=== PATIENT | female | born 1980 | race Caucasian/White ===

== ENCOUNTER 2016-11-22 14:50 | Inpatient (IN) | payer OTHER ==
[~2016-11-22] VITALS: Ht 162.6 cm; Wt 97.6 kg
[2016-11-22] VITALS (7 sets, daily range): BP systolic 0–115; BP diastolic 0–89
[~2016-11-22 14:50] MED LIST: BACLOFEN10 MG PO; CLONIDINE HCL0.1 MG PO; GABAPENTIN100 MG PO; GABAPENTIN300 MG PO; NOHOMEMEDS; SLEEP AID25 M1 PO; TRAZODONE HCL50 MG PO; ULTRAM50 MG PO; ZOFRAN4 MG PO
[2016-11-22 15:29] LABS: ADD MIUA? NO; BILIRUBIN NEGATIVE; BLOOD NEGATIVE; COLOR YELLOW ((YELLOW)); GLUCOSE (STRIP) NEGATIVE; KETONES NEGATIVE; LEUKOCYTES NEGATIVE; NITRITE NEGATIVE; PROTEIN (STRIP) NEGATIVE; SPECIFIC GRAVITY 1.018 (1.000-1.030); UCUL ADDED? NO; UROBILINOGEN 0.2 MG/DL (0.2-1.0)
[2016-11-22 15:39] LABS: ADD MEDTOX COMMENT Y; AMPHETAMINE NEGATIVE (500 ng/mL); BARBITURATES NEGATIVE (200 ng/mL); BENZODIAZEPINES PRESUMPTIVE POSITIVE (150 ng/mL); COCAINE NEGATIVE (150 ng/mL); INTERNAL CONTROLS VALID? YES; METHADONE PRESUMPTIVE POSITIVE (200 ng/mL); METHAMPHETAMINE NEGATIVE (500 ng/mL); OPIATES (MORPHINE) NEGATIVE (100 ng/mL); OXYCODONE PRESUMPTIVE POSITIVE (100 ng/mL); PHENCYCLIDINE NEGATIVE (25 ng/mL); PROPOXYPHENE NEGATIVE (300 ng/mL); THC CANNABINOIDS NEGATIVE (50 ng/mL); TRICYCLIC ANTIDEPRESSANTS PRESUMPTIVE POSITIVE (300 ng/mL)
[2016-11-22 16:03] LABS: BASE EXCESS -3.9 mEq/L (-3 to +3); BICARBONATE 24.1 mEq/L (22-26); CARBOXY HGB 3.8 % (0-5); COMMENTS - BLOOD GASES C+; DEVICE VENT; FI02 100 %; MECHANICAL RATE 16 resp/min; METHEMOGLOBIN 1.1 % (0-1.5); MODE A/C; PCO2 55 mm Hg (35-45); PO2 183 mm Hg (80-100); SITE LB; pH 7.25 (7.35-7.45)
[2016-11-22 16:04] LABS: PEEP 5 CM/H20; TIDAL VOLUME 400 ML; TOTAL RESP RATE 16 resp/min
[2016-11-22 16:09] LABS: BENZODIAZEPINES, URINE SCREEN POSITIVE (200 ng/mL)
[2016-11-22 16:09] LABS: HEMATOCRIT 46.8 % (36.0-46.0); MCH 28.3 PG (29.0-34.0); MCHC 31.6 G/DL (30.0-36.0); MCV 89.5 FL (83-99); MEAN PLAT.VOLUME 10.2 uM^3 (9.5-12.4); RBC DIS.WIDTH-CV 13.7 % (11.8-14.6); RBC DIS.WIDTH-SD 44.9 % (39-53); RED BLOOD COUNT 5.23 M/uL (3.80-5.20); WHITE BLOOD COUNT 24.7 K/uL (4.1-10.2)
[2016-11-22 16:42] LABS: CHLORIDE 108 mEq/L (99-109); POTASSIUM 5.6 mEq/L (3.7-5.4); SODIUM 140 mEq/L (136-147)
[2016-11-22 16:45] LABS: GLUCOSE 141 mg/dL (70-99)
[2016-11-22 16:46] LABS: ANION GAP 12 MEQ/L (2-14); TOTAL BILIRUBIN 0.6 mg/dL (0.0-1.0)
[2016-11-22 16:47] LABS: SERUM ETHYL ALCOHOL < 10 mg/dL
[2016-11-22 16:48] LABS: GFR ESTIMATE (CALCULATED) > 59 mL/min/
[2016-11-22 16:49] LABS: ALKALINE PHOSPHATASE 76 IU/L (3-129)
[2016-11-22 16:50] LABS: UREA NITROGEN (BUN) 17 mg/dL (9-23)
[2016-11-22 16:52] LABS: SALICYLATE < 5.0 MG/DL (15-30)
[2016-11-22 17:03] LABS: ABS NEUTROPHIL COUNT 22.1; ANISOCYTOSIS 1+; ATYPICAL LYMPHOCYTE 0.9 %; BASOPHILS 0.9 %; EOSINOPHIL ABS CT 0; HEMATOLOGY COMMENT 1 SN; INSTRUMENT ABS NEUTROPHIL CT 22.1 K/uL; LYMPHOCYTES 2.6 % (15.0-45.0); PLATELET CLUMPS PRESENT - PLATELET COUNT APPEARS ADQ.; POLYCHROMASIA 1+; SEG.NEUTROPHILS 89.5 % (46.0-76.0)
[2016-11-22 18:48] LABS: QUANTITATIVE HCG < 4.0 MIU/ML
[2016-11-22 20:16] LABS: CREATINE KINASE 111 IU/L (1-294); TOTAL CK 111 IU/L (1-294)
[2016-11-22 20:22] LABS: CK-MB 2.7 ng/mL (0.0-4.9)
[2016-11-22 21:22] LABS: METH RESISTANT S AUREUS PCR NEGATIVE (NEGATIVE)
[2016-11-22 21:46] LABS: PROBE CHECK PASS; SPECIMEN PROCESSING CONTROL PASS
[2016-11-23] VITALS (23 sets, daily range): BP systolic 82–144; BP diastolic 56–98
[2016-11-23 05:44] LABS: HEMATOCRIT 41.5 % (36.0-46.0); MCHC 31.3 G/DL (30.0-36.0); MCV 89.4 FL (83-99); MEAN PLAT.VOLUME 10.8 uM^3 (9.5-12.4); PLATELET COUNT 251 K/uL (156-360); RBC DIS.WIDTH-CV 13.8 % (11.8-14.6); RBC DIS.WIDTH-SD 45.1 % (39-53); RED BLOOD COUNT 4.64 M/uL (3.80-5.20); WHITE BLOOD COUNT 22.8 K/uL (4.1-10.2)
[2016-11-23 05:58] LABS: BASE EXCESS -0.2 mEq/L (-3 to +3); BICARBONATE 24.8 mEq/L (22-26); CARBOXY HGB 1.9 % (0-5); COMMENTS - BLOOD GASES A+C+; DEVICE VENT; FI02 60 %; MECHANICAL RATE 22 resp/min; METHEMOGLOBIN 1.5 % (0-1.5); MODE A/C; PCO2 41 mm Hg (35-45); PO2 58 mm Hg (80-100); SITE RR; TIDAL VOLUME 500 ML; TOTAL RESP RATE 22 resp/min; pH 7.39 (7.35-7.45)
[2016-11-23 05:59] LABS: PEEP 5 CM/H20
[2016-11-23 06:21] LABS: ANION GAP 5 MEQ/L (2-14); CHLORIDE 112 MEQ/L (99-109); GLUCOSE 112 mg/dL (70-99); SAMPLE HEMOLYSIS CHECK 0; SAMPLE ICTERIC CHECK 0; SAMPLE LIPEMIA CHECK 0; SODIUM 139 MEQ/L (136-147); UREA NITROGEN (BUN) 12 mg/dL (9-23)
[2016-11-23 06:29] LABS: GFR ESTIMATE (CALCULATED) > 59 mL/min/; POTASSIUM 3.9 MEQ/L (3.7-5.4)
[2016-11-23 07:19] LABS: ABS NEUTROPHIL COUNT 20.1; ATYPICAL LYMPHOCYTE 0.9 %; EOSINOPHIL ABS CT 0; INSTRUMENT ABS NEUTROPHIL CT 19.5 K/uL; LYMPHOCYTES 5.3 % (15.0-45.0); NUCLEATED RBC'S 0.4; PLAT.SUFFICIENCY ADEQUATE; SEG.NEUTROPHILS 88.1 % (46.0-76.0); SMUDGE CELLS 4.4
[2016-11-24] VITALS (21 sets, daily range): BP systolic 116–147; BP diastolic 70–97
[2016-11-24 04:56] LABS: EOSINOPHIL (%) 0 % (0-5); HEMATOCRIT 33.3 % (36.0-46.0); IMMATURE GRANULOCYTE (%) 0.4 % (0.0-0.7); IMMATURE GRANULOCYTE COUNT 0.1 K/uL; INSTRUMENT ABS NEUTROPHIL CT 11.9 K/uL; LYMPHOCYTE COUNT 1.4 K/uL (1.0-2.8); MCH 28.1 PG (29.0-34.0); MCHC 32.4 G/DL (30.0-36.0); MCV 86.5 FL (83-99); MEAN PLAT.VOLUME 10.7 uM^3 (9.5-12.4); MONOCYTE (%) 5.4 % (3-12); MONOCYTE COUNT 0.8 K/uL (0-0.8); NEUTROPHIL (%) 84.3 % (45-76); NEUTROPHIL COUNT 11.9 K/uL (1.8-6.4); PLATELET COUNT 210 K/uL (156-360); RBC DIS.WIDTH-CV 13.6 % (11.8-14.6); RBC DIS.WIDTH-SD 42.9 % (39-53); RED BLOOD COUNT 3.85 M/uL (3.80-5.20)
[2016-11-24 04:57] LABS: WHITE BLOOD COUNT 14.1 K/uL (4.1-10.2)
[2016-11-24 05:09] LABS: CHLORIDE 114 mEq/L (99-109); POTASSIUM 3.5 mEq/L (3.7-5.4); SODIUM 144 mEq/L (136-147)
[2016-11-24 05:10] LABS: GLUCOSE 102 mg/dL (70-99)
[2016-11-24 05:12] LABS: ANION GAP 9 MEQ/L (2-14)
[2016-11-24 05:14] LABS: GFR ESTIMATE (CALCULATED) > 59 mL/min/
[2016-11-24 05:15] LABS: UREA NITROGEN (BUN) 8 mg/dL (9-23)
[2016-11-24] MEDS ORDERED: ENDOCET 5-3251 EACH PO (11:16)
[2016-11-24] MEDS ORDERED: BRINTELLIX20 MG PO (11:18)
[2016-11-24] MEDS ORDERED: QUETIAPINE FUM200 MG PO (11:18)
[2016-11-24] MEDS ORDERED: LYRICA150 MG PO (11:18)
[2016-11-24] MEDS ORDERED: ALPRAZOLAM1 MG PO (11:18)
[2016-11-24] MEDS ORDERED: ROPINIROLE HCL0.5 MG PO (11:18)
[2016-11-24] MEDS ORDERED: PROAIR HFA8.5 GM IH (11:19)
[2016-11-24] MEDS ORDERED: ADVAIR 250/501 DISK IH (11:19)
[2016-11-24] MEDS ORDERED: MOTRIN PM CAPL1 EAC1 PO (11:20)
[2016-11-25] VITALS (8 sets, daily range): BP systolic 135–167; BP diastolic 83–97
[2016-11-26 03:58] VITALS: BP 146/79
[2016-11-26 06:44] LABS: HEMATOCRIT 34.4 % (36.0-46.0); MCH 28.2 PG (29.0-34.0); MCHC 32.6 G/DL (30.0-36.0); MCV 86.6 FL (83-99); MEAN PLAT.VOLUME 10.4 uM^3 (9.5-12.4); PLATELET COUNT 234 K/uL (156-360); RBC DIS.WIDTH-CV 13.8 % (11.8-14.6); RBC DIS.WIDTH-SD 42.8 % (39-53); RED BLOOD COUNT 3.97 M/uL (3.80-5.20); WHITE BLOOD COUNT 11.5 K/uL (4.1-10.2)
[2016-11-26 07:17] LABS: ANION GAP 6 MEQ/L (2-14); CHLORIDE 112 MEQ/L (99-109); GFR ESTIMATE (CALCULATED) > 59 mL/min/; GLUCOSE 89 mg/dL (70-99); POTASSIUM 3.5 MEQ/L (3.7-5.4); SAMPLE HEMOLYSIS CHECK 0; SAMPLE ICTERIC CHECK 0; SAMPLE LIPEMIA CHECK 0; SODIUM 147 MEQ/L (136-147); UREA NITROGEN (BUN) 14 mg/dL (9-23)
[2016-11-26 07:48] VITALS: BP 135/85
[2016-11-26 10:34] LABS: C DIFF TOXIN NEGATIVE (NEGATIVE)
[2016-11-26 10:36] LABS: PROBE CHECK PASS; SPECIMEN PROCESSING CONTROL PASS
[2016-11-26 15:23] VITALS: BP 154/87
== END 2016-11-26 17:31 | disposition home or self-care (01) | DRG 917 ==
LOC: EME → EDBD 14:50 → EME 14:50 → EDOF 17:51 → 4WEST 17:51 → 5SOUTH 11-25 17:09
PROVIDERS: Emergency Medicine; Hospitalist; Internal Medicine Critical Care Medicine; Physician Assistant Medical; Surgery Surgical Critical Care
PROC: 5A09357 Assistance with Respiratory Ventilation, Less than 24 Consecutive Hours, Continuous Positive Airway Pressure (ICD-10-PCS; principal; 2016-11-22)
PROC: 0BH17EZ Insertion of Endotracheal Airway into Trachea, Via Natural or Artificial Opening (ICD-10-PCS; principal; 2016-11-22)
DX: T42.4X1A Poisoning by benzodiazepines, accidental (unintentional), initial encounter (principal); J96.00 Acute respiratory failure, unspecified whether with hypoxia or hypercapnia; R65.11 Systemic inflammatory response syndrome (SIRS) of non-infectious origin with acute organ dysfunction; E87.2 Acidosis; R40.20 Unspecified coma; G93.40 Encephalopathy, unspecified; F41.8 Other specified anxiety disorders; F19.10 Other psychoactive substance abuse, uncomplicated; T40.2X1A Poisoning by other opioids, accidental (unintentional), initial encounter; T39.1X1A Poisoning by 4-Aminophenol derivatives, accidental (unintentional), initial encounter; T45.0X1A Poisoning by antiallergic and antiemetic drugs, accidental (unintentional), initial encounter; F11.20 Opioid dependence, uncomplicated; G89.29 Other chronic pain; M54.5 Low back pain; F17.210 Nicotine dependence, cigarettes, uncomplicated; Z98.1 Arthrodesis status; E66.9 Obesity, unspecified; Z68.36 Body mass index [BMI] 36.0-36.9, adult
CPT/HCPCS: 36600; 70450; 71010; 74000; 80048; 80053; 80202; 81003; 82550; 82553; 82803; 83605; 84702; 84999; 85025; 85027; 87040; 87070; 87077; 87181; 87205; 87493; 87641; 93005; 94002; 94640; 94640 76; 94799; 99202; 99281; 99285; G0480; J0330; J0696; J1650; J2310; J2405; J2543; J2704; J3010; J3370; J7050; J7120; S0028